=== PATIENT | male | born 1925 | race Caucasian/White ===

== ENCOUNTER → 2016-11-29 | Outpatient (CLI) | payer MEDICARE, BC ==
[~2016-11-29] MED LIST: IMODIUM 2MG. CAP2 MG PO
[2016-11-29 15:52] LABS: HEMOGLOBIN 14.6 g/dL (14.1-18.0); LYMPH # 1.7 K/mm3 (0.7-4.5); LYMPH % 30.8 % (10-50)
[2016-11-29 21:32] LABS: BUN 23 mg/dL (7-18); GFR (ESTIMATED) 36 ML/MIN (>60); PROSTATE-SPECIFIC AG SCREEEN 19.6 ng/mL (0.0-4.0)
== END ==
LOC: LAB 15:40
PROVIDERS: Nurse Practitioner Family
DX: R91.1 Solitary pulmonary nodule (principal); N40.0 Benign prostatic hyperplasia without lower urinary tract symptoms; R63.4 Abnormal weight loss; Z12.5 Encounter for screening for malignant neoplasm of prostate
CPT/HCPCS: G0103